=== PATIENT | male | born 1965 | race Caucasian/White ===

== ENCOUNTER 2023-04-02 20:54 | Emergency (ER) | payer MEDICARE, MEDICAID, SELFPAY ==
[2023-04-02 20:58] VITALS: BP 162/75; PULSE 83; RESP 18; TEMP 36.9; O2SAT 99; BMI 22.5
--- NOTE | 2023-04-02 21:48 | ED_ITS ---
HPI - Eye Problem General Chief complaint: Eye Problems Stated complaint: Eye injury from white lead grinder blade Time Seen by Provider: 04/02/23 21:11 Mode of arrival: walk-in History of Present Illness HPI Narrative: This 57-year-old male presents for evaluation of decreased vision and bleeding from his left eye. This 57-year-old male was using a grinding wheel around 7 PM and blade from the grinding wheel flew off and struck him in the left eye. He states he almost immediately had loss of vision in the left eye. He can see shadows. There was bleeding from the left eye at that time and his thinks that it was from the lateral aspect of the left eye. He does not wear contacts. He was not wearing corrective lenses. He states his last tetanus shot was approximately 2 years ago. Related Data Home Medications Medication Instructions Recorded Confirmed amlodipine 5 mg tablet mg 04/02/23 buprenorphine 8 mg-naloxone 2 mg film 04/02/23 sublingual film dextroamphetamine-amphetamine 30 04/02/23 mg tablet gabapentin 100 mg capsule mg 04/02/23 losartan 100 tab 04/02/23 mg-hydrochlorothiazide 25 mg tablet Allergies Allergy/AdvReac Type Severity Reaction Status Date / Time No Known Drug Allergies Allergy Verified 04/02/23 21:04 Review of Systems ROS Status of ROS 10 or more systems reviewed and unremarkable except as noted in history and below [facility] Social History Smoking status: Current every day smoker Exam Narrative Exam Narrative: Nurses note and vital signs reviewed, He is afebrile with normal pulse, blood pressure is elevated at 162/75 he is not hypoxic pulse ox 99 percent on room air General:Alert, nontoxic male, no respiratory distress Skin: Warm, dry, no rash Head: Normocephalic, atraumatic Eye: Patient has minimal vision in the left eye and can only see shadows, pupil is equal and reactive, left pupil is reactive, tetracaine was instilled into the left eye and fluorescein was instilled into the left eye. There is a large area of fluoroscein uptake into the cornea at the 9 to 10 o'clock position. Extraocular movements are intact. The globe is soft. There is edema and ecchymosis to the upper eyelid without laceration of the eyelid. Upper and lower eyelids were inverted and he do not see any sign of injury. Funduscopic exam was attempted but the pupil is somewhat constricted at 4-5 mm and I am unable to complete this Cardiovascular: Regular Rate and Rhythm Respiratory: Patient is in no distress, no accessory muscle use, lungs are clear to auscultation, no wheezing, rales or rhonchi Musculoskeletal: The patient has no evidence of calf tenderness, no pitting edema, symmetrical pulses noted bilaterally Neurological: A&O x4, normal speech Psychiatric: Cooperative Constitutional Vital Signs, click to edit/add: Last Vital Signs Temp 98.4 F 04/02/23 20:58 Pulse 78 04/02/23 23:27 Resp 18 04/02/23 20:58 BP 162/93 H 04/02/23 23:27 Pulse Ox 99 04/02/23 23:27 O2 Del Method Room Air 04/02/23 20:58 Course Vital Signs Vital signs: Vital Signs Temperature 98.4 F 04/02/23 20:58 Pulse Rate 83 04/02/23 20:58 Respiratory Rate 18 04/02/23 20:58 Blood Pressure 162/75 H 04/02/23 20:58 Pulse Oximetry 99 04/02/23 20:58 Oxygen Delivery Method Room Air 04/02/23 20:58 Temperature 98.4 F 04/02/23 20:58 Pulse Rate 78 04/02/23 23:27 Respiratory Rate 18 04/02/23 20:58 Blood Pressure 162/93 H 04/02/23 23:27 Pulse Oximetry 99 04/02/23 23:27 Oxygen Delivery Method Room Air 04/02/23 20:58 MDM - Eye Problem MDM Narrative Medical decision making narrative: This 57-year-old male presents for evaluation of decreased vision in his left eye, he can only see shadows, after he was struck with a grinding wheel. He states that he was grinding metal and a grinding wheel flew off and struck him directly in the left eye. There was initially bleeding from the left eye. He presents with markedly decreased vision from the left eye, he has ecchymosis over the left upper eyelid. There is a large amount of floor seen uptake in the lateral aspect of the left eye. IV was placed and the patient was medicated with IV Levaquin. His last tetanus was 22 years ago. He scan of the orbits was negative for acute findings. I spoke to the service center coordinator at [facility] in [place] who stated that he was unable to provide this patient any assistance. There were no local service center coordinator available for consultation. The service center coordinator at [facility] suggested I speak to the service center coordinator at [facility] in [place]. The case was discussed with Dr. Wick who conferenced with the ED attending at [facility]. He will go by private vehicle to [facility] and be evaluated in the ED by the Opthamology resident in conjuction with Dr Wick. NPO status was explained to the patient and he verbalized understanding. Medical Records Medical records narrative: [facility] [place] [id number] CT Scan Report Signed Patient: CANDE FLOYD MR#: [id number] : 1965 Acct:[id number] Age/Sex: 57 / M ADM Date: 04/02/23 Loc: ER Attending Dr: Ordering Physician: Ghazal Ly Date of Service: 04/02/23 Procedure(s): CT orbit BI wo con Accession Number(s): [id number] cc: Shaikh Millicent Sanchez~ [facility] [place] [id number] Patient Name: CANDE FLOYD MRN: [id number] date: 1965 Sex: M Assigned Patient Location: ER Current Patient Location: ER Accession/Order Number: [id number] Exam Date: 04/02/2023 22:23 Report Date: 04/02/2023 23:18 At the request of: GHAZAL LY Procedure: CT orbit BI wo con EXAM: CT orbit without contrast. 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 COMPARISON: None. TECHNIQUE: Axial CT scans of the orbits were obtained without contrast. MPR images were obtained. Dose reduction techniques were achieved by using: automated exposure control and/or adjustment of mA and /or kV according to patient size and/or use of iterative reconstruction technique. FINDINGS: Orbits are intact. The eye globes are intact. No retrobulbar edema or hemorrhage. The visualized paranasal sinuses show no air-fluid level. The visualized intracranial contents appear normal. Middle ear cavities and visualized mastoids are clear. CT/CT orbit BI wo con IMPRESSION: Orbits are intact. The eye globes are intact. No retrobulbar edema or hemorrhage. Electronically authenticated by: EMMA LOZANO Date: 04/02/2023 23:18 Critical Care Time Critical Care Time Critical Care Time: Yes Total Critical Care Time: 35 Attestation: . Discharge Plan Discharge Chief Complaint: Eye Problems Clinical Impression: Penetrating eye injury, Acute loss of vision Patient Disposition: [facility] Time of Disposition Decision: 00:08 Discharge location: [facility] ED Condition: Fair Prescriptions / Home Meds: No Action amlodipine 5 mg tablet dextroamphetamine-amphetamine 30 mg tablet losartan-hydrochlorothiazide 100-25 mg tablet gabapentin 100 mg capsule buprenorphine-naloxone 8-2 mg film Referrals: Shaikh Sanchez MD [Primary Care Provider] - 1 week
[2023-04-02] MEDS: FLUORESCEIN SODIUM 1 MG STRIP OP (21:54)
--- NOTE | 2023-04-02 22:14 | CT_ITS ---
The [address] [address] Patient Name: CANDE FLOYD MRN: [id number] date: 1965 Sex: M Assigned Patient Location: ER Current Patient Location: ER Accession/Order Number: [id number] Exam Date: 04/02/2023 22:23 Report Date: 04/02/2023 23:18 At the request of: VALERY MARKER Procedure: CT orbit BI wo con EXAM: CT orbit without contrast. 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 COMPARISON: None. TECHNIQUE: Axial CT scans of the orbits were obtained without contrast. MPR images were obtained. Dose reduction techniques were achieved by using: automated exposure control and/or adjustment of mA and /or kV according to patient size and/or use of iterative reconstruction technique. FINDINGS: Orbits are intact. The eye globes are intact. No retrobulbar edema or hemorrhage. The visualized paranasal sinuses show no air-fluid level. The visualized intracranial contents appear normal. Middle ear cavities and visualized mastoids are clear. CT/CT orbit BI wo con IMPRESSION: Orbits are intact. The eye globes are intact. No retrobulbar edema or hemorrhage. Electronically authenticated by: EMMA LOZANO Date: 04/02/2023 23:18
[2023-04-02] MEDS: LEVOFLOXACIN IN DEXTROSE 5 % 750 MG/150 ML IV.SOLN 100 MG IV (22:15)
[2023-04-02] MEDS: TETRACAINE HCL 0.5% OP SOL 80 DROP/4 ML BOTTLE OP (22:15)
[2023-04-02 22:26] VITALS: BP 156/79
[2023-04-02 23:27] VITALS: BP 162/93; PULSE 78; O2SAT 99
[2023-04-03 00:23] VITALS: BP 172/96; PULSE 75; O2SAT 99
== END 2023-04-03 00:20 | disposition short-term general hospital (02) ==
PROVIDERS: Emergency Provider Emergency Medicine; PCP Internal Medicine
DX: S05.62XA Penetrating wound without foreign body of left eyeball, initial encounter (principal); H54.62 Unqualified visual loss, left eye, normal vision right eye; Z79.899 Other long term (current) drug therapy; W20.8XXA Other cause of strike by thrown, projected or falling object, initial encounter; F17.210 Nicotine dependence, cigarettes, uncomplicated
CPT/HCPCS: 70480; 96365; 96366; 99285